=== PATIENT | female | born 1945 | race Caucasian/White ===

== ENCOUNTER 2020-08-14 05:09 | Inpatient (IN) | payer MEDICARE, OTHER ==
[~2020-08-14] VITALS: Ht 157.5 cm; Wt 65.8 kg
[2020-08-14 05:43] LABS: HEMOGLOBIN 13.3 gm/dl (12.3-15.3); RED BLOOD COUNT 4.53 M/UL (4.00-5.10); WHITE BLOOD COUNT 6.3 K/UL (4.5-11.0)
[2020-08-14 06:41] LABS: BUN/CREATININE RATIO 19 (0-10)
[2020-08-14] MEDS ORDERED: ANASTROZOLE1 MG PO (17:09)
[2020-08-14] MEDS ORDERED: COZAAR 50MG TAB50 MG PO (17:09)
[2020-08-14] MEDS ORDERED: LOW DOSE ASPIRI81 MG PO (17:10)
[2020-08-14] MEDS ORDERED: VITAMIN B-121000 MC3 IM (17:13)
[2020-08-15 03:04] LABS: HEMOGLOBIN 12.5 gm/dl (12.3-15.3); RED BLOOD COUNT 4.27 M/UL (4.00-5.10)
[2020-08-15 03:20] LABS: BUN/CREATININE RATIO 19 (0-10)
[2020-08-15] MEDS ORDERED: CLOPIDOGREL75 MG PO (10:05)
[2020-08-15] MEDS ORDERED: ATORVASTATIN CA20 MG PO (10:05)
== END 2020-08-15 11:29 | disposition home or self-care (01) | DRG 247 ==
LOC: ER1 05:09 → CDU 07:05 → PROG CARE 07:05
PROVIDERS: Emergency Medicine; Internal Medicine Cardiovascular Disease; ADMIT Internal Medicine
PROC: 027034Z Dilation of Coronary Artery, One Artery with Drug-eluting Intraluminal Device, Percutaneous Approach (ICD-10-PCS; principal; 2020-08-14)
PROC: B2111ZZ Fluoroscopy of Multiple Coronary Arteries using Low Osmolar Contrast (ICD-10-PCS; 2020-08-14)
PROC: 4A023N7 Measurement of Cardiac Sampling and Pressure, Left Heart, Percutaneous Approach (ICD-10-PCS; 2020-08-14)
PROC: 4A0335C Measurement of Arterial Flow, Coronary, Percutaneous Approach (ICD-10-PCS; 2020-08-14)
PROC: B24BZZZ Ultrasonography of Heart with Aorta (ICD-10-PCS; 2020-08-15)
DX: I24.9 Acute ischemic heart disease, unspecified (principal); I25.110 Atherosclerotic heart disease of native coronary artery with unstable angina pectoris; I10 Essential (primary) hypertension; Z20.822 Contact with and (suspected) exposure to COVID-19; Z85.3 Personal history of malignant neoplasm of breast; Z90.49 Acquired absence of other specified parts of digestive tract; Z82.49 Family history of ischemic heart disease and other diseases of the circulatory system; Z88.2 Allergy status to sulfonamides; Z79.899 Other long term (current) drug therapy
CPT/HCPCS: ECHO; 36415; 78452; 80048; 80053; 80061; 82550; 82553; 82962; 84484; 85025; 85347; 85379; 85610; 85730; 93005; 93017; 93306; 99152; 99153; 99285; A9502; C1725; C1769; C1874; C1887; C1894; C9600; J1644; J2250; J2785; J3010; J3246; J7040; Q9965; Q9967; U0002